=== PATIENT | female | born 1960 | race Caucasian/White ===

== ENCOUNTER 2020-03-06 09:21 | Emergency (ER) | payer BC ==
[~2020-03-06] VITALS: Ht 160 cm; Wt 79.5 kg
[2020-03-06 10:22] VITALS: BP 139/82
== END 2020-03-06 11:10 | disposition home or self-care (01) ==
LOC: ER 09:22
DX: U07.1 COVID-19 (principal); J12.82 Pneumonia due to coronavirus disease 2019
CPT/HCPCS: 71045; 99283

== ENCOUNTER 2023-03-19 11:16 | Day surgery (SDC) | payer BC ==
[2023-03-17 11:08] LABS: APTT 25 SECONDS (22-32); INR 0.9 INR; PROTHROMBIN TIME 10.1 SECONDS (9.0-12.0)
[2023-03-17 11:09] LABS: ALBUMIN 4.2 G/DL (3.4-5.0); ANION GAP 9 (8-16); BLOOD UREA NITROGEN 31 MG/DL (7-18); BUN/CREATININE RATIO 39.2 (10.0-20.0); CALCIUM 9.6 MG/DL (8.5-10.1); CHLORIDE 101 MMOL/L (99-107); CHOLESTEROL 186 MG/DL (0-200); CREATININE 0.79 MG/DL (0.40-0.90); GLUCOSE 109 MG/DL (70-104); HDL CHOLESTEROL 61 MG/DL (35-60); LDL CHOLESTEROL 101 MG/DL (50-100); POTASSIUM 4.3 MMOL/L (3.5-5.1); SODIUM 139 MMOL/L (135-145); TOTAL CARBON DIOXIDE 28.8 MMOL/L (24-32); TRIGLYCERIDES 144 MG/DL (20-135); eGFR 73 ML/MIN
[2023-03-17 11:21] LABS: BASOPHILS % (AUTO) 0.7 % (0-1); EOSINOPHILS # (AUTO) 0.1 X10'3 (0-0.9); EOSINOPHILS % (AUTO) 2.3 % (0-6); HEMATOCRIT 45.8 % (35.0-45.0); LYMPHOCYTES # (AUTO) 1.1 X10'3 (1.1-4.8); LYMPHOCYTES % (AUTO) 17.1 % (21-51); MEAN CORPUSCULAR HEMOGLOBIN 27.4 PG (27.0-31.0); MEAN CORPUSCULAR HGB CONC 32.8 g/dL (33.0-36.5); MEAN CORPUSCULAR VOLUME 83.5 FL (78-98); MEAN PLATELET VOLUME 9.4 FL (7.4-10.4); MONOCYTES # (AUTO) 0.6 X10'3 (0-0.9); MONOCYTES % (AUTO) 9.4 % (2-12); NEUTROPHILS # (AUTO) 4.3 X10'3 (1.8-7.7); NEUTROPHILS % (AUTO) 70.5 % (42-75); PLATELET COUNT 158 X10'3 (140-440); RED BLOOD COUNT 5.48 X10'6 (4.20-5.60); RED CELL DISTRIBUTION WIDTH 13.2 % (11.5-14.5); WHITE BLOOD COUNT 6.2 X10'3 (4.5-11.0)
[2023-03-19] VITALS (9 sets, daily range): BP systolic 114–133; BP diastolic 70–89; PULSE 66–73; RESP 14–16; TEMP 98.2; O2SAT 95–98
[~2023-03-19] VITALS: Ht 160 cm; Wt 79.1 kg
[2023-03-19] MEDS ORDERED: normal saline 1,000 ML IV SCH (11:35)
[2023-03-19] MEDS ORDERED: diphenhydrAMINE 25mg capsule PO PRN (11:35)
[2023-03-19] MEDS ORDERED: LORazepam 0.5 MG tablet PO PRN (11:35)
[2023-03-19] MEDS ORDERED: ATOR20TA66 (11:43)
[2023-03-19] MEDS ORDERED: MULT-1249 PO (11:47)
[2023-03-19] MEDS ORDERED: UBID100C16 PO (11:47)
[2023-03-19] MEDS ORDERED: OMEG100037 PO (11:47)
[2023-03-19] MEDS ORDERED: CRAN450T9 PO (11:47)
[2023-03-19] MEDS ORDERED: CHOL20002 PO (11:47)
[2023-03-19] MEDS ORDERED: ZINC220T3 PO (11:47)
[2023-03-19] MEDS ORDERED: MECO10005 PO (11:47)
[2023-03-19] MEDS ORDERED: MAGN500C4 PO (11:47)
[2023-03-19] MEDS ORDERED: LIDOcaine 1% (10mg/ml) 2ml vial ONE (13:38)
[2023-03-19] MEDS ORDERED: verapamil 2.5 mg/ml inj IV ONE (13:38)
[2023-03-19] MEDS ORDERED: heparin 1,000unit/ml 10ml vial 10 ML ONE (13:39)
[2023-03-19] MEDS ORDERED: fentaNYL/PF 50MCG/1 ML 2ML syringe ONE (13:39)
[2023-03-19] MEDS ORDERED: iohexol 350MG/ML 100ml bottle IV ONE (13:39)
[2023-03-19] MEDS ORDERED: midazolam 1 mg/ML 2ml injection ONE (13:39)
[2023-03-19] MEDS ORDERED: nitroGLYCERIN 500mcg/5mL D5W 5 ML IV ONE (13:42)
[2023-03-19] MEDS ORDERED: LIDOcaine 1% 30ml preserv. free vial ONE (14:19)
[2023-03-19 14:32] LABS: ISTAT HGB ART 12.9 g/dl (12.0-16.0); ISTAT Hct ART 38 %PCV (35-45); ISTAT O2 SATURATION ARTERIAL 91 % (95-98); ISTAT SOURCE ART
[2023-03-22 06:44] LABS: ISTAT HGB MIX 11.9 g/dl (12.0-16.0); ISTAT Hct MIX 35 %PCV (35-45); ISTAT O2 SATURATION MIX VENOUS 64 % (60-80); ISTAT SOURCE VEN
== END 2023-03-19 17:45 | disposition home or self-care (01) ==
LOC: SSTAY O 11:16
PROVIDERS: ATTEND Internal Medicine Interventional Cardiology
DX: I35.0 Nonrheumatic aortic (valve) stenosis (principal); E78.00 Pure hypercholesterolemia, unspecified; Z79.899 Other long term (current) drug therapy
CPT/HCPCS: 36415; 80048; 80061; 82803; 85014; 85025; 85610; 85730; 93005; 93456; 99152; A6258; J1644; J2250; J3010; J3490; J7030; Q0163; Q9967; 99153; A6402; C1751; C1894

== ENCOUNTER 2023-06-17 11:18 | Outpatient (CLI) | payer BC ==
[~2023-06-17 11:18] MED LIST: ATOR20TA66; CHOL20002 PO; CRAN450T9 PO; MAGN500C4 PO; MECO10005 PO; MULT-1249 PO; OMEG100037 PO; UBID100C16 PO; ZINC220T3 PO; cloNIDine hcl/PF 100mcg/ml inj ONE
[2023-06-17 11:55] LABS: BASOPHILS % (AUTO) 0.6 % (0-1); EOSINOPHILS # (AUTO) 0.1 X10'3 (0-0.9); EOSINOPHILS % (AUTO) 2.1 % (0-6); HEMATOCRIT 43.8 % (35.0-45.0); HEMOGLOBIN 14.5 g/dl (12.0-16.0); LYMPHOCYTES # (AUTO) 1.2 X10'3 (1.1-4.8); LYMPHOCYTES % (AUTO) 19.3 % (21-51); MEAN CORPUSCULAR HEMOGLOBIN 27.8 PG (27.0-31.0); MEAN CORPUSCULAR VOLUME 84.2 FL (78-98); MEAN PLATELET VOLUME 9.9 FL (7.4-10.4); MONOCYTES # (AUTO) 0.5 X10'3 (0-0.9); MONOCYTES % (AUTO) 8.3 % (2-12); NEUTROPHILS # (AUTO) 4.5 X10'3 (1.8-7.7); NEUTROPHILS % (AUTO) 69.7 % (42-75); PLATELET COUNT 145 X10'3 (140-440); RED CELL DISTRIBUTION WIDTH 12.8 % (11.5-14.5); WHITE BLOOD COUNT 6.4 X10'3 (4.5-11.0)
[2023-06-17 12:45] LABS: ALANINE AMINOTRANSFERASE 27 U/L (12-78); ALBUMIN/GLOBULIN RATIO 1.2 (1.1-1.5); ALKALINE PHOSPHATASE 71 IU/L (46-116); ANION GAP 6 (8-16); ASPARTATE AMINO TRANSFERASE 21 U/L (10-37); BILIRUBIN,TOTAL 0.7 MG/DL (0.1-1.0); BLOOD UREA NITROGEN 24 MG/DL (7-18); BUN/CREATININE RATIO 28.2 (10.0-20.0); CALCIUM 9.2 MG/DL (8.5-10.1); CHLORIDE 103 MMOL/L (99-107); CREATININE 0.85 MG/DL (0.40-0.90); GLUCOSE 107 MG/DL (70-104); POTASSIUM 4.5 MMOL/L (3.5-5.1); PRO BRAIN NATRIURETIC PEPTIDE 105 PG/ML (0-125); SODIUM 140 MMOL/L (135-145); TOTAL CARBON DIOXIDE 30.6 MMOL/L (24-32); TOTAL PROTEIN 7.3 G/DL (6.4-8.2); eGFR 67 ML/MIN
[2023-06-17] MEDS ORDERED: IODIXANOL 320 MG/ML INFUS..BTL 100ML IV ONE (12:54)
== END 2023-06-17 23:59 | disposition home or self-care (01) ==
LOC: 64 CT 11:18
PROVIDERS: ATTEND Internal Medicine Cardiovascular Disease
DX: N20.0 Calculus of kidney (principal); I35.0 Nonrheumatic aortic (valve) stenosis; R06.02 Shortness of breath; I65.29 Occlusion and stenosis of unspecified carotid artery; M47.816 Spondylosis without myelopathy or radiculopathy, lumbar region
CPT/HCPCS: 36415; 71046; 71275; 72191; 75572; 80053; 83880; 85025; J0735; J3490; Q9967

== ENCOUNTER 2023-08-19 11:14 | Inpatient (IN) | payer BC ==
[2023-08-13 13:29] VITALS: PULSE 64; RESP 15; O2SAT 97
[2023-08-13 14:44] LABS: BASOPHILS % (AUTO) 0.7 % (0-1); EOSINOPHILS # (AUTO) 0.1 X10'3 (0-0.9); LYMPHOCYTES # (AUTO) 1.4 X10'3 (1.1-4.8); MEAN CORPUSCULAR HEMOGLOBIN 27.5 PG (27.0-31.0); MEAN CORPUSCULAR HGB CONC 32.5 g/dL (33.0-36.5); MEAN CORPUSCULAR VOLUME 84.4 FL (78-98); MEAN PLATELET VOLUME 9.7 FL (7.4-10.4); MONOCYTES # (AUTO) 0.6 X10'3 (0-0.9); MONOCYTES % (AUTO) 8.8 % (2-12); NEUTROPHILS # (AUTO) 4.5 X10'3 (1.8-7.7); NEUTROPHILS % (AUTO) 67.5 % (42-75); PRE OP HEMATOCRIT 43.2 % (35.0-45.0); PRE OP HEMOGLOBIN 14.1 g/dL (12.0-16.0); PRE OP PLATELET COUNT 160 X10'3 (140-440); PRE OP WHITE BLOOD COUNT 6.7 10'3 (4.8-10.8); RED BLOOD COUNT 5.12 X10'6 (4.20-5.60); RED CELL DISTRIBUTION WIDTH 12.9 % (11.5-14.5)
[2023-08-13 14:45] LABS: BILIRUBIN,URINE NEGATIVE (Neg); CLARITY,URINE CLEAR (Clear); COLOR,URINE YELLOW (Yellow); GLUCOSE, URINE NEGATIVE (Neg); KETONES,URINE NEGATIVE (Neg); LEUKOCYTE ESTERASE ,URINE NEGATIVE (Neg); NITRITES, URINE NEGATIVE (Neg); OCCULT BLOOD,URINE NEGATIVE (Neg); PH,URINE 5.5 (4.8-8.0); PROTEIN,URINE NEGATIVE (Neg); UROBILINOGEN,URINE 0.2 E.U/dL (0.2-1.0)
[2023-08-13 14:48] LABS: UA COLLECTION TYPE CLN CATCH MIDSTREAM
[2023-08-13 15:00] LABS: PRE OP PROTIME 10.4 SECONDS (9.0-12.0)
[2023-08-13 15:02] LABS: HEMOGLOBIN A1C 6.3 % (4.5-6.2)
[2023-08-13 15:07] LABS: ALBUMIN 4.1 G/DL (3.4-5.0); ALBUMIN/GLOBULIN RATIO 1.3 (1.1-1.5); ALKALINE PHOSPHATASE 68 IU/L (46-116); BLOOD UREA NITROGEN 31 MG/DL (7-18); BUN/CREATININE RATIO 37.3 (10.0-20.0); CALCIUM 9.1 MG/DL (8.5-10.1); CHLORIDE 103 MMOL/L (99-107); CREATININE 0.83 MG/DL (0.40-0.90); PRE OP ALT 38 U/L (30-65); PRE OP ANION GAP 7 (8-16); PRE OP AST 22 U/L (10-37); PRE OP BILIRUB, TOTAL 0.6 MG/DL (0.0-1.0); PRE OP GLUCOSE 99 MG/DL (70-104); PRE OP SODIUM 141 MMOL/L (135-145); TOTAL CARBON DIOXIDE 30.7 MMOL/L (24-32); TOTAL PROTEIN 7.2 G/DL (6.4-8.2); eGFR 69 ML/MIN
[2023-08-16 06:52] LABS: ABG BASE EXCESS 4.4 mmol/L (-2.0-2.0); ABG HCO3 28.6 mmol/L (22.0-26.0); ABG OXYGEN SATURATION 93.8 % (94-97); ABG PCO2 (T) 40.9 mmHg (32.0-45.0); ABG PH (T) 7.462 (7.350-7.450); ABG PO2 (T) 63.7 mmHg (75.0-100.0); ALLEN'S TEST POSITIVE; FCOHb 0.2 % (0.0-3.9); FHHb 6.2 % (0.0-5.0); FMetHb 0.3 % (0.0-1.5); FO2Hb 93.3 % (94-97); MODE ROOM AIR; TOTAL HEMOGLOBIN 15.2 G/dl (12.0-16.0)
[2023-08-19] VITALS (16 sets, daily range): BP systolic 109–151; BP diastolic 55–77; PULSE 70–85; RESP 11–16; TEMP 98.8; O2SAT 94–99
[~2023-08-19] VITALS: Ht 160 cm; Wt 78.8 kg
[~2023-08-19 11:14] MED LIST changes: +ASCO100T12 PO; +ASPI81TA52 PO; +CINN500C2 PO; +LUTE1CAP5 PO; +VIT1CAPS46 PO; -cloNIDine hcl/PF 100mcg/ml inj ONE; +dextrose 50%-water 50ml dispensing syringe IV PRN
[2023-08-19] MEDS: metoprolol tartrate 12.5mg (1/2 tablet) PO ONE (12:18)
[2023-08-19] MEDS: mupirocin 2% nasal ointment 1gm UD NS ONE (12:18)
[2023-08-19] MEDS: famotidine 20mg tablet PO ONE (12:18)
[2023-08-19] MEDS: ringers solution, lacted 1,000 ML IV SCH (12:19)
[2023-08-19] MEDS: vancomycin 1,500 MG in NS 300ml IV soln IV ONE (12:19)
[2023-08-19] MEDS: cefazolin 2gm/D5W 100mL 100 ML IV ONE (12:20)
[2023-08-19] MEDS ORDERED: isoflurane 100ml inhalation liquid IH ONE (14:11)
[2023-08-19] MEDS ORDERED: SUfentanil 50mcg/ml 1ml amp IV ONE (14:14)
[2023-08-19] MEDS ORDERED: LIDOcaine 2% (20mg/ml) 5ml vial ONE (14:42)
[2023-08-19] MEDS ORDERED: propofol inj 20 ML IV ONE (14:42)
[2023-08-19] MEDS ORDERED: rocuronium 10mg/ml inj IV ONE (14:42)
[2023-08-19 14:46] LABS: ABG BASE EXCESS 1.7 mmol/L (-2.0-2.0); ABG OXYGEN SATURATION 98.4 % (94-97); ABG PCO2 34.9 mmHg (32.0-45.0); ABG PH 7.473 (7.350-7.450); ABG PO2 111.7 mmHg (75.0-100.0); CL (ABG) 104 mmol/L (99-107); FCOHb 0.3 % (0.0-3.9); FHHb 1.6 % (0.0-5.0); FO2Hb 98.1 % (94-97); GLUCOSE (ABG) 120 mg/dl (70-104); IONIZED CA (ABG) 1.12 mmol/L (1.10-1.30); K (ABG) 3.7 mmol/L (3.5-5.1); TOTAL HEMOGLOBIN 13.1 G/dl (12.0-16.0)
[2023-08-19] MEDS: ceFAZolin 1000mg inj ONE (15:06)
[2023-08-19 15:30] LABS: ABG BASE EXCESS 0.2 mmol/L (-2.0-2.0); ABG HCO3 23.5 mmol/L (22.0-26.0); ABG OXYGEN SATURATION 99.3 % (94-97); ABG PCO2 32.7 mmHg (32.0-45.0); ABG PH 7.475 (7.350-7.450); ABG PO2 449.4 mmHg (75.0-100.0); CL (ABG) 101 mmol/L (99-107); FCOHb 0.3 % (0.0-3.9); FHHb 0.7 % (0.0-5.0); GLUCOSE (ABG) 96 mg/dl (70-104); IONIZED CA (ABG) 0.98 mmol/L (1.10-1.30); K (ABG) 4.7 mmol/L (3.5-5.1); TOTAL HEMOGLOBIN 8.9 G/dl (12.0-16.0)
[2023-08-19] MEDS ORDERED: albuterol 2.5 MG/3 ML nebule NEB PRN (15:30)
[2023-08-19 15:53] LABS: ABG BASE EXCESS 5.9 mmol/L (-2.0-2.0); ABG HCO3 29.8 mmol/L (22.0-26.0); ABG OXYGEN SATURATION 99.2 % (94-97); ABG PCO2 40.9 mmHg (32.0-45.0); ABG PH 7.481 (7.350-7.450); ABG PO2 348.3 mmHg (75.0-100.0); CL (ABG) 99 mmol/L (99-107); FCOHb 0.3 % (0.0-3.9); FHHb 0.8 % (0.0-5.0); FMetHb 0.1 % (0.0-1.5); FO2Hb 98.8 % (94-97); GLUCOSE (ABG) 100 mg/dl (70-104); IONIZED CA (ABG) 0.94 mmol/L (1.10-1.30); K (ABG) 3.9 mmol/L (3.5-5.1); TOTAL HEMOGLOBIN 8.7 G/dl (12.0-16.0)
[2023-08-19 16:30] LABS: ABG BASE EXCESS 3.2 mmol/L (-2.0-2.0); ABG HCO3 25.8 mmol/L (22.0-26.0); ABG OXYGEN SATURATION 94.2 % (94-97); ABG PCO2 32.4 mmHg (32.0-45.0); ABG PH 7.519 (7.350-7.450); CL (ABG) 103 mmol/L (99-107); FCOHb 0.3 % (0.0-3.9); FHHb 5.8 % (0.0-5.0); FMetHb 0.3 % (0.0-1.5); FO2Hb 93.6 % (94-97); GLUCOSE (ABG) 102 mg/dl (70-104); IONIZED CA (ABG) 1.19 mmol/L (1.10-1.30); TOTAL HEMOGLOBIN 10.4 G/dl (12.0-16.0)
[2023-08-19 16:32] LABS: ACTIVATED CLOTTING TIME 105 SEC (101-148)
[2023-08-19] MEDS ORDERED: potassium Cl 40MEQ/270ML bag 250 ML IV PRN (16:50)
[2023-08-19] MEDS ORDERED: Insulin Reg/NS 100units/100mL 100 ML IV SCH (16:50)
[2023-08-19] MEDS ORDERED: potassium CL 10mEq/100ml bag 100 ML IV PRN (16:50)
[2023-08-19] MEDS ORDERED: insulin glargine (Lantus) pen - multi-dose SQ PRN (16:50)
[2023-08-19] MEDS ORDERED: potassium Cl 40MEQ/1/2NS 520ml 520 ML IV PRN (16:50)
[2023-08-19] MEDS ORDERED: sodium phosphate inj. 30 MMOL in dextrose 5%-water 250 ML IV PRN (16:50)
[2023-08-19] MEDS ORDERED: dextrose 50%-water 50ml dispensing syringe IV PRN (16:50)
[2023-08-19] MEDS ORDERED: mineral oil 133ml enema RC PRN (16:50)
[2023-08-19] MEDS ORDERED: acetaminophen 325mg tablet PO PRN ×2 (16:50)
[2023-08-19] MEDS ORDERED: magnesium hydroxide 30ml (MOM) UD suspension PO PRN (16:50)
[2023-08-19] MEDS ORDERED: metoclopramide 5 mg/ml inj IV PRN (16:50)
[2023-08-19] MEDS ORDERED: potassium Cl 20 mEq SR tablet PO PRN (16:50)
[2023-08-19] MEDS ORDERED: Neutra Phos packet PO PRN (16:50)
[2023-08-19] MEDS ORDERED: normal saline 250ml IV soln 250 ML IV PRN (16:50)
[2023-08-19] MEDS ORDERED: bisacodyl 10mg suppository rectal RC PRN (16:50)
[2023-08-19] MEDS ORDERED: magnesium 2GM in 50ml NS 50 ML IV PRN (16:50)
[2023-08-19 17:19] LABS: BASOPHILS % (AUTO) 0.2 % (0-1); EOSINOPHILS # (AUTO) 0.1 X10'3 (0-0.9); EOSINOPHILS % (AUTO) 0.9 % (0-6); HEMATOCRIT 34.7 % (35.0-45.0); HEMOGLOBIN 11.5 g/dl (12.0-16.0); LYMPHOCYTES # (AUTO) 0.9 X10'3 (1.1-4.8); LYMPHOCYTES % (AUTO) 8.9 % (21-51); MEAN CORPUSCULAR HEMOGLOBIN 27.8 PG (27.0-31.0); MEAN CORPUSCULAR HGB CONC 33.1 g/dL (33.0-36.5); MEAN CORPUSCULAR VOLUME 83.8 FL (78-98); MEAN PLATELET VOLUME 9.2 FL (7.4-10.4); MONOCYTES # (AUTO) 0.5 X10'3 (0-0.9); MONOCYTES % (AUTO) 4.7 % (2-12); NEUTROPHILS # (AUTO) 9.1 X10'3 (1.8-7.7); NEUTROPHILS % (AUTO) 85.3 % (42-75); PLATELET COUNT 96 X10'3 (140-440); RED BLOOD COUNT 4.14 X10'6 (4.20-5.60); RED CELL DISTRIBUTION WIDTH 12.8 % (11.5-14.5); WHITE BLOOD COUNT 10.6 X10'3 (4.5-11.0)
[2023-08-19 17:29] LABS: ABG BASE EXCESS 2.8 mmol/L (-2.0-2.0); ABG HCO3 26.4 mmol/L (22.0-26.0); ABG PCO2 (T) 36.4 mmHg (32.0-45.0); ABG PH (T) 7.477 (7.350-7.450); ABG PO2 (T) 103.1 mmHg (75.0-100.0); FCOHb 0.1 % (0.0-3.9); FO2Hb 97.9 % (94-97); MODE VENT - SIMV/VC; PATIENT TEMPERATURE 36.7; PEEP 5 cm H2O; RESPIRATORY RATE 12 b/min; TIDAL VOLUME 500 mL; TOTAL HEMOGLOBIN 12.4 G/dl (12.0-16.0)
[2023-08-19 17:32] LABS: ALANINE AMINOTRANSFERASE 27 U/L (12-78); ALBUMIN 3.2 G/DL (3.4-5.0); ALBUMIN/GLOBULIN RATIO 1.7 (1.1-1.5); ALKALINE PHOSPHATASE 41 IU/L (46-116); ANION GAP 5 (8-16); ASPARTATE AMINO TRANSFERASE 29 U/L (10-37); BILIRUBIN,TOTAL 0.7 MG/DL (0.1-1.0); BLOOD UREA NITROGEN 19 MG/DL (7-18); BUN/CREATININE RATIO 22.6 (10.0-20.0); CALCIUM 8.6 MG/DL (8.5-10.1); CHLORIDE 107 MMOL/L (99-107); CREATININE 0.84 MG/DL (0.40-0.90); GLUCOSE 103 MG/DL (70-104); MAGNESIUM 2.8 MG/DL (1.5-2.4); PHOSPHORUS 2.2 MG/DL (2.3-4.5); POTASSIUM 3.8 MMOL/L (3.5-5.1); SODIUM 142 MMOL/L (135-145); TOTAL CARBON DIOXIDE 29.6 MMOL/L (24-32); TOTAL PROTEIN 5.1 G/DL (6.4-8.2); eCRCL 56 ML/MIN; eGFR 68 ML/MIN
[2023-08-19] MEDS: niCARDipine-NS 40mg/200ml IVPB 200 ML IV PRN (17:39)
[2023-08-19] MEDS: morphine 2 MG/ML inj. syringe IV PRN (17:42)
[2023-08-19] MEDS: albumin (Human) 5% 250ml 250 ML IV ONE (17:54)
[2023-08-19 18:12] LABS: APTT 23 SECONDS (22-32); FIBRINOGEN 160 MG/DL (177-424); INR 1.2 INR; PROTHROMBIN TIME 12.3 SECONDS (9.0-12.0)
[2023-08-19] MEDS: midazolam 1 mg/ML 2ml injection IV ONE (18:46)
[2023-08-19] MEDS: epiNEPHrine 1 mg/ml inj ONE (18:46)
[2023-08-19] MEDS: vancomycin 1,000mg inj ONE (18:47)
[2023-08-19] MEDS: sodium chloride 0.45% 1,000 ML IV SCH (19:16)
[2023-08-19] MEDS: potassium Cl 20mEq/100mL bag 100 ML IV PRN (19:17)
[2023-08-19] MEDS: nitroGLYCERIN-Tridil 50MG/D5W 250 ML IV PRN (19:17)
[2023-08-19] MEDS: Insulin Reg/NS 100units/100mL 100 ML IV SCH (19:18)
[2023-08-19] MEDS: sodium phosphate inj. 15 MMOL in dextrose 5%-water 250 ML IV PRN (19:39)
[2023-08-19] MEDS: sennosides/docusate sodium tablet PO SCH (20:00)
[2023-08-19] MEDS: mupirocin 2% nasal ointment 1gm UD NS SCH (20:29)
[2023-08-19] MEDS: vancomycin/NS 1 GM ADD-VANTAGE 250 ML IV SCH (20:29)
[2023-08-19] MEDS: gabapentin 300mg capsule PO SCH (20:29)
[2023-08-19] MEDS ORDERED: atorvastatin 10mg tablet PO SCH (21:00)
[2023-08-19 23:56] LABS: BASOPHILS % (AUTO) 0 % (0-1); EOSINOPHILS % (AUTO) 0 % (0-6); HEMATOCRIT 36.3 % (35.0-45.0); HEMOGLOBIN 11.9 g/dl (12.0-16.0); LYMPHOCYTES # (AUTO) 0.3 X10'3 (1.1-4.8); LYMPHOCYTES % (AUTO) 2.1 % (21-51); MEAN CORPUSCULAR HEMOGLOBIN 27.6 PG (27.0-31.0); MEAN CORPUSCULAR HGB CONC 32.9 g/dL (33.0-36.5); MEAN PLATELET VOLUME 8.9 FL (7.4-10.4); MONOCYTES # (AUTO) 0.6 X10'3 (0-0.9); MONOCYTES % (AUTO) 4.2 % (2-12); NEUTROPHILS # (AUTO) 12.9 X10'3 (1.8-7.7); NEUTROPHILS % (AUTO) 93.7 % (42-75); PLATELET COUNT 85 X10'3 (140-440); RED BLOOD COUNT 4.32 X10'6 (4.20-5.60); RED CELL DISTRIBUTION WIDTH 13.1 % (11.5-14.5); WHITE BLOOD COUNT 13.8 X10'3 (4.5-11.0)
[2023-08-20] VITALS (28 sets, daily range): BP systolic 97–135; BP diastolic 50–66; PULSE 80–96; RESP 11–22; O2SAT 93–98
[2023-08-20 00:28] LABS: ALBUMIN 3.7 G/DL (3.4-5.0); ANION GAP 11 (8-16); BLOOD UREA NITROGEN 18 MG/DL (7-18); BUN/CREATININE RATIO 16.5 (10.0-20.0); CALCIUM 7.9 MG/DL (8.5-10.1); CHLORIDE 108 MMOL/L (99-107); CREATININE 1.09 MG/DL (0.40-0.90); GLUCOSE 155 MG/DL (70-104); PHOSPHORUS 3.2 MG/DL (2.3-4.5); POTASSIUM 3.7 MMOL/L (3.5-5.1); SODIUM 142 MMOL/L (135-145); TOTAL CARBON DIOXIDE 23.4 MMOL/L (24-32); eCRCL 43 ML/MIN; eGFR 51 ML/MIN
[2023-08-20 00:56] LABS: ABG BASE EXCESS -2.2 mmol/L (-2.0-2.0); ABG HCO3 22.4 mmol/L (22.0-26.0); ABG OXYGEN SATURATION 96.4 % (94-97); ABG PCO2 (T) 37.9 mmHg (32.0-45.0); ABG PO2 (T) 84.2 mmHg (75.0-100.0); FCOHb 0.3 % (0.0-3.9); FHHb 3.6 % (0.0-5.0); FMetHb 0.3 % (0.0-1.5); FO2Hb 95.8 % (94-97); MODE VENT - CPAP; PATIENT TEMPERATURE 36.8; PEEP 5 cm H2O
[2023-08-20] MEDS: ceFAZolin/D5W- 1GM premix 50 ML IV SCH (01:24)
[2023-08-20] MEDS: magnesium 4gm in 100ml NS 100 ML IV PRN (01:25)
[2023-08-20] MEDS: ondansetron/PF 4mg/2ml inj IV PRN (04:24)
[2023-08-20] MEDS: albumin (Human) 5% 250ml 250 ML IV PRN (04:38)
[2023-08-20 05:48] LABS: BASOPHILS % (AUTO) 0 % (0-1); EOSINOPHILS % (AUTO) 0 % (0-6); HEMOGLOBIN 11.4 g/dl (12.0-16.0); LYMPHOCYTES # (AUTO) 0.2 X10'3 (1.1-4.8); LYMPHOCYTES % (AUTO) 1.2 % (21-51); MEAN CORPUSCULAR HEMOGLOBIN 27.5 PG (27.0-31.0); MEAN CORPUSCULAR HGB CONC 32.6 g/dL (33.0-36.5); MEAN CORPUSCULAR VOLUME 84.3 FL (78-98); MEAN PLATELET VOLUME 10.3 FL (7.4-10.4); MONOCYTES # (AUTO) 0.6 X10'3 (0-0.9); NEUTROPHILS # (AUTO) 14.4 X10'3 (1.8-7.7); NEUTROPHILS % (AUTO) 94.8 % (42-75); PLATELET COUNT 83 X10'3 (140-440); RED BLOOD COUNT 4.15 X10'6 (4.20-5.60); WHITE BLOOD COUNT 15.2 X10'3 (4.5-11.0)
[2023-08-20 05:49] LABS: APTT 25 SECONDS (22-32); PROTHROMBIN TIME 11.1 SECONDS (9.0-12.0)
[2023-08-20 05:50] LABS: ALANINE AMINOTRANSFERASE 30 U/L (12-78); ALBUMIN/GLOBULIN RATIO 1.8 (1.1-1.5); ALKALINE PHOSPHATASE 43 IU/L (46-116); ANION GAP 10 (8-16); ASPARTATE AMINO TRANSFERASE 30 U/L (10-37); BILIRUBIN,TOTAL 0.7 MG/DL (0.1-1.0); BLOOD UREA NITROGEN 15 MG/DL (7-18); CALCIUM 7.9 MG/DL (8.5-10.1); CHLORIDE 105 MMOL/L (99-107); CREATININE 0.79 MG/DL (0.40-0.90); GLUCOSE 165 MG/DL (70-104); MAGNESIUM 3.1 MG/DL (1.5-2.4); PHOSPHORUS 3.4 MG/DL (2.3-4.5); POTASSIUM 4.8 MMOL/L (3.5-5.1); SODIUM 138 MMOL/L (135-145); TOTAL CARBON DIOXIDE 23.5 MMOL/L (24-32); TOTAL PROTEIN 6.2 G/DL (6.4-8.2); eCRCL 60 ML/MIN; eGFR 73 ML/MIN
[2023-08-20] MEDS: atorvastatin 20mg tablet PO SCH (08:18)
[2023-08-20] MEDS: cholecalciferol (vitamin D3) 1,000 unit (25mcg) tablet PO SCH (08:19)
[2023-08-20] MEDS: HYDROcodone/acetaminophen 10/325mg tab PO PRN ×2 (08:19→21:07)
[2023-08-20] MEDS: metoprolol tartrate 12.5mg (1/2 tablet) PO SCH (08:20)
[2023-08-20] MEDS: multivitamins, therapeutics tablet PO SCH (08:20)
[2023-08-20] MEDS: aspirin 81mg tab.chew PO SCH (08:20)
[2023-08-20] MEDS: gabapentin 300mg capsule PO SCH (20:18)
[2023-08-21] VITALS (24 sets, daily range): BP systolic 96–121; BP diastolic 44–61; PULSE 75–129; RESP 11–21; TEMP 96.9; O2SAT 89–97
[2023-08-21 03:19] LABS: BASOPHILS % (AUTO) 0 % (0-1); EOSINOPHILS % (AUTO) 0 % (0-6); HEMOGLOBIN 11.8 g/dl (12.0-16.0); LYMPHOCYTES # (AUTO) 0.6 X10'3 (1.1-4.8); LYMPHOCYTES % (AUTO) 2.6 % (21-51); MEAN CORPUSCULAR HEMOGLOBIN 27.2 PG (27.0-31.0); MEAN CORPUSCULAR VOLUME 85.1 FL (78-98); MEAN PLATELET VOLUME 10.1 FL (7.4-10.4); MONOCYTES # (AUTO) 1.6 X10'3 (0-0.9); MONOCYTES % (AUTO) 6.9 % (2-12); NEUTROPHILS % (AUTO) 90.5 % (42-75); PLATELET COUNT 88 X10'3 (140-440); RED BLOOD COUNT 4.35 X10'6 (4.20-5.60); RED CELL DISTRIBUTION WIDTH 13.5 % (11.5-14.5); WHITE BLOOD COUNT 23.2 X10'3 (4.5-11.0)
[2023-08-21 03:40] LABS: ALBUMIN 3.5 G/DL (3.4-5.0); ANION GAP 8 (8-16); BLOOD UREA NITROGEN 15 MG/DL (7-18); BUN/CREATININE RATIO 19.2 (10.0-20.0); CALCIUM 8.7 MG/DL (8.5-10.1); CHLORIDE 103 MMOL/L (99-107); CREATININE 0.78 MG/DL (0.40-0.90); GLUCOSE 149 MG/DL (70-104); MAGNESIUM 2.4 MG/DL (1.5-2.4); PHOSPHORUS 3.5 MG/DL (2.3-4.5); POTASSIUM 5.3 MMOL/L (3.5-5.1); SODIUM 139 MMOL/L (135-145); TOTAL CARBON DIOXIDE 28.2 MMOL/L (24-32); eCRCL 60 ML/MIN; eGFR 74 ML/MIN
[2023-08-21 07:15] LABS: PLATELET ESTIMATE DECREASED; TOTAL CELLS COUNTED 100
[2023-08-21] MEDS: morphine 4 MG/ML inj SYRINge IV PRN (07:34)
[2023-08-21] MEDS: pantoprazole 40mg Tablet.DR PO SCH (07:51)
[2023-08-21] MEDS: midodrine tablet 2.5 MG TABLET PO SCH (12:36)
[2023-08-21] MEDS: amiodarone 150mg/dext, iso-os 100 ML IV ONE (14:53)
[2023-08-21] MEDS: amiodarone/D5 360MG/200ML BAG 200 ML IV SCH (15:05)
[2023-08-21] MEDS ORDERED: glucagon, human recombinant 1mg kit SUBCUT PRN (18:00)
[2023-08-21] MEDS: INSULIN LISPRO 100 UNIT/ML INSULN.PEN MULTI-DOSE SQ SCH (20:06)
[2023-08-21] MEDS ORDERED: dextrose 50%-water 50ml dispensing syringe IV PRN (22:10)
[2023-08-22] VITALS (16 sets, daily range): BP systolic 91–114; BP diastolic 48–73; PULSE 71–106; RESP 15–18; TEMP 97–99.4; O2SAT 90–97
[2023-08-22 06:15] LABS: BASOPHILS % (AUTO) 0.1 % (0-1); EOSINOPHILS % (AUTO) 0 % (0-6); HEMATOCRIT 36.3 % (35.0-45.0); HEMOGLOBIN 11.6 g/dl (12.0-16.0); LYMPHOCYTES % (AUTO) 5.6 % (21-51); MEAN CORPUSCULAR HEMOGLOBIN 27.3 PG (27.0-31.0); MEAN CORPUSCULAR VOLUME 85.4 FL (78-98); MEAN PLATELET VOLUME 10.4 FL (7.4-10.4); MONOCYTES # (AUTO) 1.5 X10'3 (0-0.9); MONOCYTES % (AUTO) 8.6 % (2-12); NEUTROPHILS # (AUTO) 14.8 X10'3 (1.8-7.7); NEUTROPHILS % (AUTO) 85.7 % (42-75); PLATELET COUNT 88 X10'3 (140-440); RED BLOOD COUNT 4.25 X10'6 (4.20-5.60); RED CELL DISTRIBUTION WIDTH 13.3 % (11.5-14.5); WHITE BLOOD COUNT 17.3 X10'3 (4.5-11.0)
[2023-08-22 06:40] LABS: ALBUMIN 3.1 G/DL (3.4-5.0); ANION GAP 7 (8-16); BLOOD UREA NITROGEN 16 MG/DL (7-18); CALCIUM 8.5 MG/DL (8.5-10.1); CHLORIDE 103 MMOL/L (99-107); GLUCOSE 142 MG/DL (70-104); MAGNESIUM 1.9 MG/DL (1.5-2.4); PHOSPHORUS 2.5 MG/DL (2.3-4.5); POTASSIUM 4.6 MMOL/L (3.5-5.1); SODIUM 143 MMOL/L (135-145); TOTAL CARBON DIOXIDE 33.4 MMOL/L (24-32); eCRCL 59 ML/MIN; eGFR 72 ML/MIN
[2023-08-22] MEDS: magnesium citrate 296ml oral solution PO ONE (10:34)
[2023-08-23] VITALS (11 sets, daily range): BP systolic 106–138; BP diastolic 58–78; PULSE 67–85; RESP 14–18; TEMP 97.2–98.5; O2SAT 91–98
[2023-08-23 06:27] LABS: ACT @ 1.70 U 245 SEC (193-297); ACT @ 2.84 U 392 SEC (260-420); BASELINE ACT 130 SEC (101-148); PATIENT WEIGHT 78.0k KG
[2023-08-23 06:37] LABS: BASOPHILS % (AUTO) 0.2 % (0-1); EOSINOPHILS # (AUTO) 0.1 X10'3 (0-0.9); EOSINOPHILS % (AUTO) 0.5 % (0-6); HEMATOCRIT 35.7 % (35.0-45.0); HEMOGLOBIN 11.6 g/dl (12.0-16.0); LYMPHOCYTES # (AUTO) 1.2 X10'3 (1.1-4.8); LYMPHOCYTES % (AUTO) 11.1 % (21-51); MEAN CORPUSCULAR HEMOGLOBIN 27.4 PG (27.0-31.0); MEAN CORPUSCULAR HGB CONC 32.6 g/dL (33.0-36.5); MEAN CORPUSCULAR VOLUME 84.1 FL (78-98); MEAN PLATELET VOLUME 9.8 FL (7.4-10.4); MONOCYTES # (AUTO) 0.9 X10'3 (0-0.9); MONOCYTES % (AUTO) 8.1 % (2-12); NEUTROPHILS # (AUTO) 8.8 X10'3 (1.8-7.7); NEUTROPHILS % (AUTO) 80.1 % (42-75); PLATELET COUNT 103 X10'3 (140-440); RED BLOOD COUNT 4.25 X10'6 (4.20-5.60); WHITE BLOOD COUNT 10.9 X10'3 (4.5-11.0)
[2023-08-23 07:01] LABS: ANION GAP 3 (8-16); BLOOD UREA NITROGEN 21 MG/DL (7-18); BUN/CREATININE RATIO 24.7 (10.0-20.0); CALCIUM 8.7 MG/DL (8.5-10.1); CHLORIDE 103 MMOL/L (99-107); CREATININE 0.85 MG/DL (0.40-0.90); GLUCOSE 129 MG/DL (70-104); PHOSPHORUS 3.1 MG/DL (2.3-4.5); POTASSIUM 4.6 MMOL/L (3.5-5.1); SODIUM 141 MMOL/L (135-145); TOTAL CARBON DIOXIDE 34.8 MMOL/L (24-32); eCRCL 55 ML/MIN; eGFR 67 ML/MIN
[2023-08-23] MEDS: amiodarone 200mg tablet PO SCH (07:59)
[2023-08-23] MEDS ORDERED: ondansetron 4mg rapidly disintigrating tab PO PRN (11:15)
[2023-08-24 06:00] VITALS: BP 124/68; PULSE 75; RESP 18; TEMP 98; O2SAT 94
[2023-08-24 08:00] VITALS: RESP 18; O2SAT 98
[2023-08-24] MEDS ORDERED: AMI200T PO (08:34)
[2023-08-24] MEDS ORDERED: HYDR-3972 PO (08:34)
[2023-08-24] MEDS ORDERED: LOP12.5T PO (08:34)
[2023-08-24 08:35] VITALS: BP_SYST 132; PULSE 75
[2023-08-24 08:58] LABS: MAGNESIUM 2.1 MG/DL (1.5-2.4); PHOSPHORUS 4.3 MG/DL (2.3-4.5); POTASSIUM 4.5 MMOL/L (3.5-5.1)
[2023-08-24] MEDS ORDERED: HYDR-3973 PO (15:55)
== END 2023-08-24 11:50 | disposition home health service (06) | DRG 220 ==
LOC: PAS IN 11:14 → CICU 2S 16:55 → PCU 3S 08-21 21:42
PROVIDERS: ADMIT Thoracic Surgery (Cardiothoracic Vascular Surgery); ATTEND Thoracic Surgery (Cardiothoracic Vascular Surgery)
PROC: 5A1221Z Performance of Cardiac Output, Continuous (ICD-10-PCS; 2023-08-19)
PROC: B24BZZ4 Ultrasonography of Heart with Aorta, Transesophageal (ICD-10-PCS; 2023-08-19)
PROC: 03HY32Z Insertion of Monitoring Device into Upper Artery, Percutaneous Approach (ICD-10-PCS; 2023-08-19)
PROC: 02RF08Z Replacement of Aortic Valve with Zooplastic Tissue, Open Approach (ICD-10-PCS; principal; 2023-08-19 14:11)
DX: I35.0 Nonrheumatic aortic (valve) stenosis (principal); J93.82 Other air leak; I48.91 Unspecified atrial fibrillation; E78.5 Hyperlipidemia, unspecified; Z79.82 Long term (current) use of aspirin; Z79.899 Other long term (current) drug therapy
CPT/HCPCS: 93312; 93325; Z7506; Z7508; 36415; 36600; 71045; 71046; 76376; 80048; 80053; 81003; 82330; 82435; 82800; 82803; 82947; 82948; 83036; 83735; 84100; 84132; 84295; 85007; 85018; 85025; 85347; 85384; 85610; 85730; 86885; 86900; 86901; 86920; 87070; 87081; 93005; 93970; 94002; 94010; 94668; 94760; 97116; 97161; 97530; A4615; A4618; A6213; A6258; A6449; A7000; C1751; G0378; J0171; J0282; J0690; J1644; J1815; J2150; J2270; J2405; J2704; J2919; J3370; J3475; J3480; J3490; J7030; J7040; J7050; J7060; J7120; P9045; P9047

== ENCOUNTER 2023-08-24 23:01 | Emergency (ER) | payer BC ==
[~2023-08-24] VITALS: Ht 160 cm; Wt 77.5 kg
[~2023-08-24 23:01] MED LIST changes: +AMI200T PO; +HYDR-3972 PO; +HYDR-3973 PO; +LOP12.5T PO; -dextrose 50%-water 50ml dispensing syringe IV PRN
[2023-08-24 23:08] VITALS: TEMP 99
[2023-08-24] MEDS ORDERED: metoprolol tartrate 1mg/ml inj IV SCH (23:30)
[2023-08-24 23:35] LABS: BASOPHILS % (AUTO) 0.3 % (0-1); EOSINOPHILS # (AUTO) 0.2 X10'3 (0-0.9); EOSINOPHILS % (AUTO) 2.1 % (0-6); HEMATOCRIT 43.2 % (35.0-45.0); HEMOGLOBIN 14.3 g/dl (12.0-16.0); LYMPHOCYTES % (AUTO) 18.2 % (21-51); MEAN CORPUSCULAR HEMOGLOBIN 27.8 PG (27.0-31.0); MEAN CORPUSCULAR HGB CONC 33.1 g/dL (33.0-36.5); MONOCYTES # (AUTO) 1.1 X10'3 (0-0.9); NEUTROPHILS # (AUTO) 7.6 X10'3 (1.8-7.7); NEUTROPHILS % (AUTO) 69.4 % (42-75); PLATELET COUNT 196 X10'3 (140-440); RED BLOOD COUNT 5.14 X10'6 (4.20-5.60); RED CELL DISTRIBUTION WIDTH 13.2 % (11.5-14.5)
[2023-08-24] MEDS: metoprolol tartrate 1mg/ml inj IV SCH (23:39)
[2023-08-24 23:58] LABS: ANION GAP 12 (8-16); BLOOD UREA NITROGEN 26 MG/DL (7-18); BUN/CREATININE RATIO 23.6 (10.0-20.0); CALCIUM 9.7 MG/DL (8.5-10.1); CHLORIDE 98 MMOL/L (99-107); GLUCOSE 165 MG/DL (70-104); PRO BRAIN NATRIURETIC PEPTIDE 808 PG/ML (0-125); SODIUM 139 MMOL/L (135-145); TOTAL CARBON DIOXIDE 28.8 MMOL/L (24-32); eCRCL 43 ML/MIN; eGFR 50 ML/MIN
[2023-08-25] MEDS: metoprolol tartrate 12.5mg (1/2 tablet) PO ONE (01:55)
[2023-08-25 02:00] VITALS: BP 105/62; PULSE 74; RESP 14; O2SAT 92
== END 2023-08-25 02:06 | disposition home or self-care (01) ==
LOC: ER 23:01
DX: I48.92 Unspecified atrial flutter (principal); Z79.899 Other long term (current) drug therapy; Z79.82 Long term (current) use of aspirin
CPT/HCPCS: 36415; 71045; 80048; 83880; 84484; 85025; 93005; 96374; 96376; 99285; J3490